=== PATIENT | male | born 1950 | race Caucasian/White ===

== ENCOUNTER → 2016-08-13 | Outpatient (CLI) | payer MEDICARE, BC ==
--- NOTE | 2016-08-13 15:59 | US ---
EXAMINATION TYPE: US kidneys/renal and bladder DATE OF EXAM: 08/13/2016 3:23 PM COMPARISON: NONE CLINICAL HISTORY: Urinary tract infectious disease N39.0. EXAM MEASUREMENTS: Right Kidney: 9.5 x 6.1 x 6.0 cm Left Kidney: 10.0 x 5.4 x 5.9 cm There is no evidence for hydronephrosis at this point in time. No nephrolithiasis is seen. Lobulatio n to the bilateral kidney.. The urinary bladder is anechoic. Bilateral ureteral jets are seen. IMPRESSION: Lobulated margin of the bilateral kidney. May represent dromedary hump. Recommend follow-up CT scan f or confirmation to exclude neoplasm
== END | disposition home or self-care (01) ==
LOC: RADUSWWP 14:53
PROVIDERS: ATTEND Family Medicine
DX: Q63.1 Lobulated, fused and horseshoe kidney (principal); N39.0 Urinary tract infection, site not specified
CPT/HCPCS: 76770

== ENCOUNTER 2016-11-14 10:02 | Day surgery (SDC) | payer MEDICARE, BC ==
[2016-11-13 10:23] VITALS: BMI 29.5
[~2016-11-14 10:02] MED LIST: LACTATED RINGERS 1,000 ML IV SCH
[2016-11-14 10:22] VITALS: TEMP 97.5
[2016-11-14] MEDS ORDERED: LIDOCAINE 1% 20 ML VIAL (10MG/ML) FOR IV START INTRADERMA ONE (10:25)
[2016-11-14] MEDS ORDERED: PROPOFOL 10 MG/ML 20 ML VIAL IV ONE (10:49)
--- NOTE | 2016-11-14 11:48 | P.PCN ---
Date of Procedure: 11/14/16 Preoperative Diagnosis: Postoperative Diagnosis: Procedure(s) Performed: BRIEF HISTORY: Patient is a 66-year-old pleasant white male, scheduled for an elective colonoscopy as a part of value should of prior history of colon polyps. Last coloscopy was done 5 years ago. PROCEDURE PERFORMED: Colonoscopy. PREOPERATIVE DIAGNOSIS: History of Colon polyps. IV sedation per Anesthesia. PROCEDURE: After informed consent was obtained, the patient, was brought into the endoscopy unit. IV sedation was administered by Anesthesia under continuous monitoring. Digital rectal examination was normal. Initially the Olympus CF- 160 flexible video colonoscope was then inserted in the rectum, gradually advanced into the cecum without any difficulty. Careful examination was performed as the scope was gradually being withdrawn. Ileocecal valve and the appendiceal orifice were visualized and appeared normal. Prep was excellent. Mucosa of the cecum, ascending colon, transverse colon, descending colon, sigmoid colon, and rectum appeared normal. Retroflexion was performed in the rectum and small internal hemorrhoids were seen. The patient tolerated the procedure well. IMPRESSION: Normal-appearing colon from rectum to cecum with no evidence of colon rectal neoplasia. Small internal hemorrhoids seen RECOMMENDATIONS: Findings of this examination were discussed with the patient as well as his family. He was advised to have a repeat agate colonoscopy in 5 years because of the prior history of colon polyps. Implants: Indications for Procedure: Operative Findings: Description of Procedure:
[2016-11-14 12:16] VITALS: BP 90/53; PULSE 51; RESP 16
== END 2016-11-14 12:28 | disposition home or self-care (01) ==
LOC: ORWHC2ENDO 10:02
PROVIDERS: ATTEND Internal Medicine Gastroenterology
DX: Z12.11 Encounter for screening for malignant neoplasm of colon (principal); K64.8 Other hemorrhoids; Z86.010 Personal history of colon polyps; I10 Essential (primary) hypertension; F17.290 Nicotine dependence, other tobacco product, uncomplicated; G62.9 Polyneuropathy, unspecified; Z79.1 Long term (current) use of non-steroidal anti-inflammatories (NSAID); Z79.891 Long term (current) use of opiate analgesic; Z79.899 Other long term (current) drug therapy
CPT/HCPCS: J2704; G0121

== ENCOUNTER → 2016-11-21 | Outpatient (CLI) | payer MEDICARE, BC ==
[2016-11-21 19:30] LABS: Blood Urea Nitrogen 28 mg/dL (9-20); Non-African American GFR(MDRD) >60 (>60 ml/min/1.73 sqM)
--- NOTE | 2016-11-21 21:18 | CT ---
EXAMINATION TYPE: CT abdomen pelvis wo/w con DATE OF EXAM: 11/21/2016 COMPARISON: NONE HISTORY: Abnormal US results and difficulty urinating. CT DLP: 2696 mGycm Automated exposure control for dose reduction was used. TECHNIQUE: Helical acquisition of images was performed from the lung bases through the pelvis. CONTRAST: Performed with Oral Contrast and without and with IV Contrast, patient injected with 100 mL of Omnipa que 300. FINDINGS: The lung bases are clear. There is no pleural effusion. Heart size is normal. Liver spleen pancreas gallbladder appear normal. Bile ducts are not dilated. There is no adrenal mass . Kidneys show satisfactory contrast opacification. There is no hydronephrosis. Ureters are not dilated . There is no retroperitoneal adenopathy. Appendix appears normal. There is no ascites. Bladder diste nds smoothly. There is no sign of a pelvic mass. I see no intestinal wall thickening. There are no di lated loops. There are spondylotic changes in the lumbar spine. There are multiple sigmoid diverticul a. There is no evidence of diverticulitis. IMPRESSION: THERE IS SOME SIGMOID DIVERTICULOSIS. NO EVIDENCE OF DIVERTICULITIS. NO EVIDENCE OF RENAL STONE OR OB STRUCTION.
== END | disposition home or self-care (01) ==
LOC: RADCTMAIN 18:53
PROVIDERS: ATTEND Family Medicine
DX: D49.519 Neoplasm of unspecified behavior of unspecified kidney (principal); K57.30 Diverticulosis of large intestine without perforation or abscess without bleeding
CPT/HCPCS: 82565; 84520; 74178; 36415; Q9967

== ENCOUNTER → 2018-11-12 | Outpatient (CLI) | payer MEDICARE, BC ==
--- NOTE | 2018-11-12 15:47 | XR ---
EXAMINATION TYPE: XR orbit complete bilateral DATE OF EXAM: 11/12/2018 COMPARISON: NONE HISTORY: Pre-MRI orbits TECHNIQUE: 4 projections. FINDINGS: No metallic foreign bodies are in or about the orbits to contraindicate MRI. There is a met allic foreign body to the right cheek. This is of the level of the maxilla. Dental hardware is presen t. IMPRESSION: 1. Metallic foreign body at the level of the right maxilla.
--- NOTE | 2018-11-12 16:45 | MR ---
EXAMINATION TYPE: MR lumbar spine wo con DATE OF EXAM: 11/12/2018 COMPARISON: None HISTORY: Low back pain CONTRAST: 0 mL intravenous Gadavist. TECHNIQUE: Multiplanar, multisequence images of the lumbar spine were acquired. FINDINGS: L5-S1: There is broadbase focal disc bulging. This may has some extension beyond the endplate suggest ing subligamentous disc extension. This has no thecal sac contact. Some contact with the exiting left S1 nerve root may be present. Correlate with left S1 radicular symptoms. Mild facet hypertrophy is p resent. L4-L5: Broad-based disc bulge has minimal anterior thecal sac flattening. Facet hypertrophy and ligam entum flavum laxity is contributing to lateral canal narrowing spinal canal narrowing. AP spinal montez l stenosis is not present. Severe right foraminal stenosis present. L3-L4: Broad-based disc bulge has anterior thecal sac flattening. Facet hypertrophy is posterior late ral thecal sac compression. No AP spinal canal stenosis is present. Mild posterior lateral thecal sac compression from ligamentum flavum laxity on the left is present. Moderate left foraminal stenosis p resent from facet hypertrophy. L2-L3: Broad-based disc bulge has moderate anterior thecal sac compression. Facet hypertrophy has min imal posterior lateral thecal sac compression. Neural foramen are patent. L1-L2: Endplate changes are present. Mild facet hypertrophy has posterior lateral thecal sac compress ion on the left. No AP spinal canal stenosis present. There is moderate right foraminal narrowing due to disc bulging into the right foramen. No nerve root contact is evident. T12-L1: No significant disc bulge or disc herniation. No spinal canal stenosis. No foraminal stenos is. . IMPRESSION: 1. Right lateral disc bulging or herniation into the L1-L2 foramen with moderate foraminal narrowing. 2. Broad-based disc bulge L2-3 has moderate anterior thecal sac compression. 3. Broad-based disc bulge L3-4 has mild anterior thecal sac flattening. Facet hypertrophy has posteri or lateral thecal sac impression. 4. Some moderate left foraminal stenosis at L3-4 due to facet hypertrophy is present. 5. Subligamentous disc disc herniation broad-based disc bulge L5-S1 without significant thecal sac co mpression or stenosis. Some contact with the left S1 nerve root may be present. Correlate with the cl inical symptoms. 6. Severe right foraminal stenosis is present L4-5 from facet hypertrophy and some disc bulge.
== END | disposition home or self-care (01) ==
LOC: RADMRIMAIN 15:11
PROVIDERS: ATTEND Psychiatry & Neurology Neurology
DX: M48.061 Spinal stenosis, lumbar region without neurogenic claudication (principal); M51.26 Other intervertebral disc displacement, lumbar region; T17.0XXA Foreign body in nasal sinus, initial encounter
CPT/HCPCS: 70200; 72148

== ENCOUNTER → 2024-01-27 | Outpatient (CLI) | payer MEDICARE, BC ==
--- NOTE | 2024-01-27 14:58 | CT ---
EXAMINATION TYPE: CT chest wo con DATE OF EXAM: 01/27/2024 2:24 PM COMPARISON: Chest radiograph 05/13/2022 CLINICAL INDICATION: Male, 73 years old with history of J84.9 INTERSTITIAL PULMONARY DISEASE, UNSPECI FIED; PHH, ILD TECHNIQUE: High-resolution CT protocol. Multiple axial images were obtained through the chest. Sagitt al and coronal reformats were created for review. MIP was performed on a separate workstation. Contrast used: mL of (None if empty) Oral contrast used: (None if empty) CT DLP: 1485.9 mGycm, Automated exposure control for dose reduction was used. FINDINGS: LUNGS: There evidence for focal consolidation, pneumothorax or pleural effusion. There is basilar ate lectasis and/or scarring present streaky atelectasis in the lung bases. No evidence for airspace cons olidation.. Right middle lobe 4 mm pulmonary nodule. LARGE AIRWAYS: Central airways are patent. No dynamic airway collapse on expiratory imaging. . No br onchiectasis is mild circumference of bronchial wall thickening most pronounced in the lower large ai rways. PLEURA: No pleural effusion or thickening. HEART: The heart is mildly enlarged for size. Moderate atherosclerosis of the coronary arteries. MEDIASTINUM: No gross evidence of adenopathy. VASCULATURE: No aortic aneurysm. MUSCULOSKELETAL: No acute osseous abnormalities SOFT TISSUES/LYMPH NODES: Unremarkable. LOWER NECK: No significant findings. UPPER ABDOMEN: No significant findings. IMPRESSION: 1. No evidence for pulmonary fibrosis. 2. Mild bronchial wall thickening correlate for bronchitis. Consider short-term follow-up after jeb tment. 3. Cardiomegaly with pulmonary vascular congestion correlate serum BNP. 4. Right middle lobe 4 mm pulmonary nodule. Consider indwelling the patient and yearly low-dose lung cancer screening after they meet criteria. Follow-up in 12 months recommended. [facility], , 01/27/2024 2:56 PM
== END | disposition home or self-care (01) ==
LOC: RADCTMAIN 13:50
PROVIDERS: ATTEND Internal Medicine Critical Care Medicine
DX: J84.9 Interstitial pulmonary disease, unspecified (principal); I51.7 Cardiomegaly; J98.09 Other diseases of bronchus, not elsewhere classified; R09.89 Other specified symptoms and signs involving the circulatory and respiratory systems; R91.1 Solitary pulmonary nodule
CPT/HCPCS: 71250